=== PATIENT | female | born 1985 | race Caucasian/White ===

== ENCOUNTER 2017-12-19 17:32 | Emergency (ER) | payer OTHER ==
[2017-12-19] MEDS: NS 1,000 ML IV (18:30)
[2017-12-19] MEDS: KETOROLAC 30 MG/ML VIAL (J1885) IV (18:47)
[2017-12-19] MEDS: METOCLOPRAMIDE INJ 10MG/2ML VIAL (J2765) IV (18:47)
[2017-12-19 19:00] LABS: BASO % 0.3 % (0.0-1.0); EOS # 0.4 10^3/uL (0.0-0.50); EOS % 4.6 % (0.0-3.0); HEMATOCRIT 40.3 % (36.0-47.0); HEMOGLOBIN 13.3 g/dl (12.0-16.0); IMMATURE GRANULOCYTE % 0.2 % (0-3.0); LYMPH % 34.4 % (24.0-44.0); MEAN CORPUSCULAR HEMOGLOBIN 31.5 pg (27.0-33.0); MEAN CORPUSCULAR VOLUME 95.5 fl (80.0-96.0); MONO # 0.6 10^3/uL (0.0-0.8); MONO % 7.4 % (0.0-5.0); NEUTROPHILS # 4.6 10^3/uL (1.8-7.7); NEUTROPHILS % 53.1 % (36.0-66.0); PLATELET COUNT, AUTOMATED 180 10^3/uL (150-450); RED BLOOD COUNT 4.22 10^6/uL (4.00-5.40); RED CELL DISTRIBUTION WIDTH 13.1 % (11.5-14.5); WHITE BLOOD COUNT 8.7 10^3/uL (4.0-10.0)
[2017-12-19 19:22] LABS: ANION GAP 7 MEQ/L (8-16); BLOOD UREA NITROGEN 13 MG/DL (7-18); C REACTIVE PROTEIN QUANTITATIV 0.79 MG/DL (0.00-0.30); CALCIUM LEVEL 7.7 MG/DL (8.5-10.1); CARBON DIOXIDE LEVEL 27 MEQ/L (21-32); CHLORIDE LEVEL 108 MEQ/L (98-107); CREATININE FOR GFR 0.48 MG/DL (0.55-1.30); GLOMERULAR FILTRATION RATE > 60.0 (>60); GLUCOSE, FASTING 84 MG/DL (70-100); POTASSIUM SERUM 3.7 MEQ/L (3.5-5.1); SODIUM LEVEL 142 MEQ/L (136-145)
[2017-12-19] MEDS: ONDANSETRON 4 MG ORAL DISINTEGRATING TAB (S0181) PO (21:00)
[2017-12-19] MEDS: KETOROLAC TROMETHAMINE 10 MG TAB PO (21:00)
== END 2017-12-19 21:08 | disposition home or self-care (01) ==
LOC: M ED 17:32
DX: G44.209 Tension-type headache, unspecified, not intractable (principal); M25.532 Pain in left wrist; J45.909 Unspecified asthma, uncomplicated; M81.0 Age-related osteoporosis without current pathological fracture; F17.200 Nicotine dependence, unspecified, uncomplicated; Z79.899 Other long term (current) drug therapy; Z88.5 Allergy status to narcotic agent; Z88.4 Allergy status to anesthetic agent
CPT/HCPCS: J1885

== ENCOUNTER → 2022-12-29 | Outpatient (CLI) | payer OTHER ==
[~2022-12-29] MED LIST: COMBAER6 INH; HUMI40KI2 SC; KETO10TAB PO; MELA5TAB20 PO; SERO200T PO; VIST50CA PO; ZOFR4TAB14 PO
== END ==
LOC: M SOG 11:02
PROVIDERS: ATTEND Physician Assistant
DX: M25.531 Pain in right wrist (principal)

== ENCOUNTER 2025-01-02 08:11 | Inpatient (IN) | payer OTHER ==
[~2025-01-02] VITALS: Ht 165.1 cm; Wt 99.8 kg
[~2025-01-02 08:11] MED LIST changes: +ALBU8.5H INH; +FAMO1TAB11 PO; +FLUD0.1T PO; +MIDO5TA PO
[2025-01-02] MEDS ORDERED: fentaNYL 100 MCG/2 ML INJECTION As Ordered ONE (08:32)
[2025-01-02] MEDS ORDERED: propofoL 200 MG/20 ML VIAL As Ordered ONE (08:32)
[2025-01-02] MEDS ORDERED: MIDAZOLAM INJ 2MG/2ML VIAL As Ordered ONE (08:32)
[2025-01-02] MEDS ORDERED: ONDANSETRON 4MG 2ML VIAL As Ordered ONE (08:32)
[2025-01-02] MEDS ORDERED: LIDOCAINE 2% 100MG/5ML SDV (FOR ANES.) As Ordered ONE (08:32)
[2025-01-02] MEDS ORDERED: dexmedeTOMIDine (4MCG/ML)200MCG/50ML BTL (PRECEDEX) As Ordered ONE (08:33)
[2025-01-02] MEDS: LR 1,000 ML IV SCH ×2 (09:18→13:10)
[2025-01-02] MEDS ORDERED: ROCURONIUM BROMIDE 50MG/5ML VIAL As Ordered ONE (10:06)
[2025-01-02] MEDS ORDERED: HYDROCORTISONE 100MG/2ML VIAL As Ordered ONE (10:14)
[2025-01-02] MEDS: CLINDAMYCIN 900MG/50ML PREMIX BAG As Ordered ONE (10:30)
[2025-01-02] MEDS: HEPARIN SOD (PORCINE) 5000UNITS/ML 1ML VIAL/SYRINGE SQ ONE (10:42)
[2025-01-02] MEDS ORDERED: HYDROmorphone HCL 2MG/ML 1ML VIAL As Ordered ONE (10:53)
[2025-01-02] MEDS ORDERED: ACETAMINOPHEN 1000MG/100ML IV BAG As Ordered ONE (10:53)
[2025-01-02] MEDS ORDERED: SUGAMMADEX SODIUM 500 MG/5 ML VIAL (BRIDION) As Ordered ONE (10:53)
[2025-01-02] MEDS: POVIDONE-IODINE 5% OPHTH PREP SOL 30ML As Ordered ONE (10:57)
[2025-01-02] MEDS: LIDOCAINE 2% W/EPINEPHRINE 20ML VIAL **PRES FREE As Ordered ONE (10:57)
[2025-01-02] MEDS: ceFAZolin SOD 2 GM IV ONCE IV ONE (10:58)
[2025-01-02] MEDS: BUPivacaine LIPOSOME/PF 266MG 20ML VIAL (13.3MG/ML)(EXPAREL) As Ordered ONE (12:57)
[2025-01-02] MEDS: BACITRACIN OINTMENT 30GM TUBE As Ordered ONE (12:58)
[2025-01-02] MEDS ORDERED: fentaNYL 100 MCG/2 ML INJECTION IV PRN (13:10)
[2025-01-02] MEDS ORDERED: HYDROMORPHONE HCL 0.5 MG/ 0.5 ML SYRINGE IV PRN (13:10)
[2025-01-02] MEDS ORDERED: ONDANSETRON 4MG 2ML VIAL IV PRN (13:10)
[2025-01-02] MEDS ORDERED: oxyCODONE 5MG TAB PO PRN (13:10)
[2025-01-02] MEDS ORDERED: ALBUTEROL 90 MCG/ACT 8GM HFA INHALER INH PRN (14:50)
[2025-01-02 15:30] VITALS: BP 122/70; TEMP 97.2; O2SAT 96
[2025-01-02] MEDS ORDERED: ACETAMINOPHEN 325 MG TAB PO PRN (15:45)
[2025-01-02 16:00] VITALS: BP 121/70; TEMP 97.3; O2SAT 93
[2025-01-02] MEDS ORDERED: HOME MED LIST COMPLETE! XX SCH (16:15)
[2025-01-02 16:30] VITALS: BP 122/70; TEMP 96.6; O2SAT 95
[2025-01-02 17:30] VITALS: BP 123/69; TEMP 97.9; O2SAT 88
[2025-01-02 18:32] VITALS: BP 105/63; TEMP 97.7; O2SAT 94
[2025-01-02] MEDS: DOCUSATE SODIUM 100MG CAPSULE PO SCH (20:07)
[2025-01-02] MEDS: FAMOTIDINE 20 MG TAB PO SCH (20:07)
[2025-01-02 20:30] VITALS: BP 127/77; TEMP 97.9; O2SAT 94
[2025-01-03 00:30] VITALS: BP 125/78; TEMP 97.5; O2SAT 97
[2025-01-03 04:30] VITALS: BP 122/76; TEMP 97.7; O2SAT 95
[2025-01-03 06:00] LABS: BASO % 0.4 % (0.0-1.0); EOS # 0.2 10^3/uL (0.0-0.5); EOS % 2.3 % (0.0-3.0); HEMOGLOBIN 12.7 g/dl (12.0-15.5); LYMPH # 2.7 10^3/uL (1.5-5.0); LYMPH % 33.9 % (24.0-44.0); MEAN CORPUSCULAR HEMOGLOBIN 30.9 pg (27.0-33.0); MEAN CORPUSCULAR HGB CONC 32.6 g/dl (32.0-36.5); MEAN CORPUSCULAR VOLUME 94.9 fl (80.0-96.0); MONO # 0.8 10^3/uL (0.0-0.8); MONO % 9.8 % (2.0-8.0); NEUTROPHILS # 4.2 10^3/uL (1.5-8.5); NEUTROPHILS % 53.2 % (36.0-66.0); PLATELET COUNT, AUTOMATED 211 10^3/uL (150-450); RED BLOOD COUNT 4.11 10^6/uL (4.00-5.40); WHITE BLOOD COUNT 7.8 10^3/uL (4.0-10.0)
[2025-01-03 06:06] LABS: BLOOD UREA NITROGEN 16 MG/DL (9-23); CALCIUM LEVEL 8.4 MG/DL (8.5-10.1); CARBON DIOXIDE LEVEL 25 MMOL/L (20-31); CHLORIDE LEVEL 110 MMOL/L (98-107); GLOMERULAR FILTRATION RATE > 60.0 (>60); GLUCOSE, FASTING 104 MG/DL (60-100); POTASSIUM SERUM 3.8 MMOL/L (3.5-5.1); SODIUM LEVEL 143 MMOL/L (136-145)
[2025-01-03 08:30] VITALS: BP 127/77; TEMP 97.5; O2SAT 96
[2025-01-03 09:10] VITALS: BP 124/82; TEMP 97.8; O2SAT 96
[2025-01-03] MEDS: MIDODRINE 5 MG TAB PO SCH ×2 (09:34→19:37)
[2025-01-03] MEDS: FLUDROCORTISONE ACETATE 0.1 MG TAB PO SCH (09:35)
[2025-01-03] MEDS: ENOXAPARIN 40MG/0.4ML SYRINGE (J1650 PER 10MG) SC SCH (09:37)
[2025-01-03] MEDS: oxyCODONE 5MG TAB PO PRN (09:54)
[2025-01-03 12:00] VITALS: BP 132/75; TEMP 97.7; O2SAT 98
[2025-01-03] MEDS: SIMETHICONE 80MG CHEW TAB PO PRN (19:36)
[2025-01-03 19:55] VITALS: BP 130/76; TEMP 97.7; O2SAT 94
[2025-01-04 00:09] VITALS: BP 119/71; TEMP 98.2; O2SAT 93
[2025-01-04 04:00] VITALS: BP 125/75; TEMP 98.2; O2SAT 93
[2025-01-04] MEDS: CEPACOL LOZENGE PO PRN (06:05)
[2025-01-04 06:10] LABS: BASO % 0.5 % (0.0-1.0); EOS # 0.3 10^3/uL (0.0-0.5); EOS % 4.2 % (0.0-3.0); HEMATOCRIT 39.1 % (36.0-47.0); HEMOGLOBIN 12.7 g/dl (12.0-15.5); LYMPH # 2.2 10^3/uL (1.5-5.0); LYMPH % 27.8 % (24.0-44.0); MEAN CORPUSCULAR HEMOGLOBIN 30.6 pg (27.0-33.0); MEAN CORPUSCULAR HGB CONC 32.5 g/dl (32.0-36.5); MEAN CORPUSCULAR VOLUME 94.2 fl (80.0-96.0); MONO # 0.7 10^3/uL (0.0-0.8); MONO % 8.9 % (2.0-8.0); NEUTROPHILS # 4.6 10^3/uL (1.5-8.5); NEUTROPHILS % 58.2 % (36.0-66.0); PLATELET COUNT, AUTOMATED 192 10^3/uL (150-450); RED BLOOD COUNT 4.15 10^6/uL (4.00-5.40); WHITE BLOOD COUNT 7.9 10^3/uL (4.0-10.0)
[2025-01-04 06:30] LABS: BLOOD UREA NITROGEN 12 MG/DL (9-23); CALCIUM LEVEL 7.9 MG/DL (8.5-10.1); CARBON DIOXIDE LEVEL 26 MMOL/L (20-31); CHLORIDE LEVEL 105 MMOL/L (98-107); CREATININE FOR GFR 0.74 MG/DL (0.55-1.30); GLOMERULAR FILTRATION RATE > 90.0 (>60); GLUCOSE, FASTING 90 MG/DL (60-100); POTASSIUM SERUM 3.8 MMOL/L (3.5-5.1); SODIUM LEVEL 139 MMOL/L (136-145)
[2025-01-04 10:02] LABS: IONIZED CALCIUM 4.5 MG/DL (4.5-5.3)
[2025-01-04 10:40] LABS: URIC ACID 5.2 MG/DL (3.1-7.8)
[2025-01-04 10:43] LABS: C REACTIVE PROTEIN QUANTITATIV 3.1 MG/DL (<1.0); C REACTIVE PROTEIN QUANTITATIV 3.12 MG/DL (<1.0); MAGNESIUM LEVEL 1.8 MG/DL (1.8-2.4); PHOSPHORUS LEVEL 3.2 MG/DL (2.5-4.9)
[2025-01-04 10:55] LABS: PROCALCITONIN 0.04 ng/ml
[2025-01-04 11:07] LABS: SOURCE, BODY FLUID RT KNEE; SYNOVIAL FLUID COLOR PALE YELLOW (COLORLESS)
[2025-01-04] MEDS: MIRALAX *UNIT DOSE* 17GM PACKET PO SCH (11:40)
[2025-01-04 12:23] LABS: CRYSTALS, BODY FLUID NONE SEEN (NONE SEEN); SOURCE, BODY FLUID CRYSTALS RT KNEE
[2025-01-04 13:07] VITALS: BP 124/72; TEMP 97.9; O2SAT 94
[2025-01-04] MEDS: oxyCODONE 5MG TAB PO PRN (16:00)
[2025-01-04 20:43] VITALS: BP 124/71; TEMP 97.3; O2SAT 95
[2025-01-05 05:27] VITALS: BP 122/70; TEMP 97.9; O2SAT 97
[2025-01-05 06:33] LABS: BASO % 0.5 % (0.0-1.0); EOS # 0.4 10^3/uL (0.0-0.5); EOS % 5.2 % (0.0-3.0); HEMATOCRIT 37.9 % (36.0-47.0); HEMOGLOBIN 12.3 g/dl (12.0-15.5); LYMPH # 2.2 10^3/uL (1.5-5.0); LYMPH % 29.3 % (24.0-44.0); MEAN CORPUSCULAR HEMOGLOBIN 30.9 pg (27.0-33.0); MEAN CORPUSCULAR HGB CONC 32.5 g/dl (32.0-36.5); MEAN CORPUSCULAR VOLUME 95.2 fl (80.0-96.0); MONO # 0.7 10^3/uL (0.0-0.8); MONO % 9.6 % (2.0-8.0); NEUTROPHILS # 4.2 10^3/uL (1.5-8.5); NEUTROPHILS % 55.1 % (36.0-66.0); PLATELET COUNT, AUTOMATED 193 10^3/uL (150-450); RED BLOOD COUNT 3.98 10^6/uL (4.00-5.40); WHITE BLOOD COUNT 7.5 10^3/uL (4.0-10.0)
[2025-01-05 06:56] LABS: BLOOD UREA NITROGEN 7 MG/DL (9-23); CALCIUM LEVEL 8.4 MG/DL (8.5-10.1); CARBON DIOXIDE LEVEL 28 MMOL/L (20-31); CHLORIDE LEVEL 106 MMOL/L (98-107); CREATININE FOR GFR 0.65 MG/DL (0.55-1.30); GLOMERULAR FILTRATION RATE > 90.0 (>60); GLUCOSE, FASTING 97 MG/DL (60-100); POTASSIUM SERUM 4.2 MMOL/L (3.5-5.1); SODIUM LEVEL 141 MMOL/L (136-145)
[2025-01-05 08:00] LABS: C REACTIVE PROTEIN QUANTITATIV 6.74 MG/DL (<1.0)
[2025-01-05 09:25] VITALS: BP 148/80; TEMP 97.7
[2025-01-05 12:42] VITALS: BP 124/70; TEMP 97.9; O2SAT 96
[2025-01-05] MEDS: IBUPROFEN 800 MG TAB PO SCH (14:00)
[2025-01-05 16:30] VITALS: BP 125/71; TEMP 97.7; O2SAT 97
[2025-01-05 20:36] VITALS: BP 134/84; TEMP 97.9; O2SAT 96
[2025-01-06] VITALS (7 sets, daily range): BP systolic 108–136; BP diastolic 64–80; TEMP 97–97.7; O2SAT 96–99
[2025-01-06 07:18] LABS: BASO # 0.1 10^3/uL (0.0-0.2); BASO % 0.9 % (0.0-1.0); EOS # 0.5 10^3/uL (0.0-0.5); EOS % 7.1 % (0.0-3.0); HEMATOCRIT 37.5 % (36.0-47.0); HEMOGLOBIN 12.3 g/dl (12.0-15.5); LYMPH # 2.2 10^3/uL (1.5-5.0); LYMPH % 29.6 % (24.0-44.0); MEAN CORPUSCULAR HEMOGLOBIN 30.3 pg (27.0-33.0); MEAN CORPUSCULAR HGB CONC 32.8 g/dl (32.0-36.5); MEAN CORPUSCULAR VOLUME 92.4 fl (80.0-96.0); MONO # 0.6 10^3/uL (0.0-0.8); MONO % 7.9 % (2.0-8.0); NEUTROPHILS # 4.1 10^3/uL (1.5-8.5); NEUTROPHILS % 54.2 % (36.0-66.0); PLATELET COUNT, AUTOMATED 210 10^3/uL (150-450); RED BLOOD COUNT 4.06 10^6/uL (4.00-5.40); WHITE BLOOD COUNT 7.6 10^3/uL (4.0-10.0)
[2025-01-06 07:48] LABS: BLOOD UREA NITROGEN 8 MG/DL (9-23); CALCIUM LEVEL 8.3 MG/DL (8.5-10.1); CARBON DIOXIDE LEVEL 26 MMOL/L (20-31); CHLORIDE LEVEL 106 MMOL/L (98-107); GLOMERULAR FILTRATION RATE > 90.0 (>60); GLUCOSE, FASTING 98 MG/DL (60-100); POTASSIUM SERUM 3.9 MMOL/L (3.5-5.1); SODIUM LEVEL 140 MMOL/L (136-145)
[2025-01-06] MEDS ORDERED: ANALGESIC BALM CRM 3OZ TOP PRN (09:55)
[2025-01-06] MEDS: RAMELTEON 8 MG TAB (ROZEREM) PO SCH (20:24)
[2025-01-07] VITALS: BP 121/74; TEMP 97.2; O2SAT 98
[2025-01-07 04:54] VITALS: BP 130/83; TEMP 97.5; O2SAT 98
[2025-01-07 07:20] LABS: BASO # 0.1 10^3/uL (0.0-0.2); BASO % 0.7 % (0.0-1.0); EOS # 0.6 10^3/uL (0.0-0.5); EOS % 7.9 % (0.0-3.0); HEMATOCRIT 36.2 % (36.0-47.0); LYMPH # 2.2 10^3/uL (1.5-5.0); LYMPH % 31.4 % (24.0-44.0); MEAN CORPUSCULAR HEMOGLOBIN 30.3 pg (27.0-33.0); MEAN CORPUSCULAR HGB CONC 33.1 g/dl (32.0-36.5); MEAN CORPUSCULAR VOLUME 91.4 fl (80.0-96.0); MONO # 0.6 10^3/uL (0.0-0.8); MONO % 8.3 % (2.0-8.0); NEUTROPHILS # 3.7 10^3/uL (1.5-8.5); NEUTROPHILS % 51.4 % (36.0-66.0); PLATELET COUNT, AUTOMATED 223 10^3/uL (150-450); RED BLOOD COUNT 3.96 10^6/uL (4.00-5.40); WHITE BLOOD COUNT 7.1 10^3/uL (4.0-10.0)
[2025-01-07 07:50] LABS: BLOOD UREA NITROGEN 10 MG/DL (9-23); CALCIUM LEVEL 8.3 MG/DL (8.5-10.1); CARBON DIOXIDE LEVEL 25 MMOL/L (20-31); CHLORIDE LEVEL 109 MMOL/L (98-107); CREATININE FOR GFR 0.64 MG/DL (0.55-1.30); GLOMERULAR FILTRATION RATE > 90.0 (>60); GLUCOSE, FASTING 98 MG/DL (60-100); SODIUM LEVEL 143 MMOL/L (136-145)
[2025-01-07 08:00] VITALS: BP 122/84; TEMP 97.7; O2SAT 98
[2025-01-07 16:00] VITALS: BP 136/82; TEMP 97.7; O2SAT 97
[2025-01-07 20:04] VITALS: BP 134/83; TEMP 97.5; O2SAT 98
[2025-01-08] VITALS (7 sets, daily range): BP systolic 111–133; BP diastolic 69–86; TEMP 97.3–97.9; O2SAT 73–98
[2025-01-08 07:44] LABS: BASO % 0.4 % (0.0-1.0); EOS # 0.5 10^3/uL (0.0-0.5); EOS % 5.7 % (0.0-3.0); HEMATOCRIT 36.2 % (36.0-47.0); LYMPH # 2.3 10^3/uL (1.5-5.0); MEAN CORPUSCULAR HEMOGLOBIN 30.4 pg (27.0-33.0); MEAN CORPUSCULAR HGB CONC 33.1 g/dl (32.0-36.5); MEAN CORPUSCULAR VOLUME 91.6 fl (80.0-96.0); MONO # 0.7 10^3/uL (0.0-0.8); MONO % 8.3 % (2.0-8.0); NEUTROPHILS # 4.5 10^3/uL (1.5-8.5); NEUTROPHILS % 56.2 % (36.0-66.0); PLATELET COUNT, AUTOMATED 218 10^3/uL (150-450); RED BLOOD COUNT 3.95 10^6/uL (4.00-5.40)
[2025-01-08 08:17] LABS: ALBUMIN 2.7 G/DL (3.2-5.2); ALKALINE PHOSPHATASE 83 U/L (35-104); ALT/SGPT 59 U/L (7.0-40); AST/SGOT 22 U/L (<34); BILIRUBIN,TOTAL 0.3 MG/DL (0.3-1.2); BLOOD UREA NITROGEN 15 MG/DL (9-23); C REACTIVE PROTEIN QUANTITATIV 3.12 MG/DL (<1.0); CALCIUM LEVEL 8.1 MG/DL (8.5-10.1); CARBON DIOXIDE LEVEL 26 MMOL/L (20-31); CHLORIDE LEVEL 105 MMOL/L (98-107); CREATININE FOR GFR 0.67 MG/DL (0.55-1.30); GLOMERULAR FILTRATION RATE > 90.0 (>60); GLUCOSE, FASTING 99 MG/DL (60-100); MAGNESIUM LEVEL 1.7 MG/DL (1.8-2.4); POTASSIUM SERUM 3.9 MMOL/L (3.5-5.1); SODIUM LEVEL 139 MMOL/L (136-145)
[2025-01-08] MEDS: MAG SULF 1GM/100ML (MAG RUN) 1 GM in IV 1 EA IV SCH (12:55)
[2025-01-08] MEDS: CLINDAMYCIN 150MG CAPSULE PO SCH (16:12)
[2025-01-09] VITALS (12 sets, daily range): BP systolic 99–128; BP diastolic 56–78; TEMP 97.3–97.9; O2SAT 93–100
[2025-01-09 08:01] LABS: BASO % 0.4 % (0.0-1.0); EOS # 0.3 10^3/uL (0.0-0.5); EOS % 3.9 % (0.0-3.0); HEMATOCRIT 38.1 % (36.0-47.0); HEMOGLOBIN 12.8 g/dl (12.0-15.5); LYMPH # 1.7 10^3/uL (1.5-5.0); LYMPH % 23.1 % (24.0-44.0); MEAN CORPUSCULAR HEMOGLOBIN 30.7 pg (27.0-33.0); MEAN CORPUSCULAR HGB CONC 33.6 g/dl (32.0-36.5); MEAN CORPUSCULAR VOLUME 91.4 fl (80.0-96.0); MONO # 0.6 10^3/uL (0.0-0.8); MONO % 8.4 % (2.0-8.0); NEUTROPHILS # 4.7 10^3/uL (1.5-8.5); NEUTROPHILS % 63.7 % (36.0-66.0); PLATELET COUNT, AUTOMATED 222 10^3/uL (150-450); RED BLOOD COUNT 4.17 10^6/uL (4.00-5.40); WHITE BLOOD COUNT 7.4 10^3/uL (4.0-10.0)
[2025-01-09 08:20] LABS: BLOOD UREA NITROGEN 16 MG/DL (9-23); CALCIUM LEVEL 8.3 MG/DL (8.5-10.1); CARBON DIOXIDE LEVEL 27 MMOL/L (20-31); CHLORIDE LEVEL 104 MMOL/L (98-107); CREATININE FOR GFR 0.66 MG/DL (0.55-1.30); GLOMERULAR FILTRATION RATE > 90.0 (>60); GLUCOSE, FASTING 100 MG/DL (60-100); MAGNESIUM LEVEL 1.9 MG/DL (1.8-2.4); POTASSIUM SERUM 3.6 MMOL/L (3.5-5.1); SODIUM LEVEL 139 MMOL/L (136-145)
[2025-01-09 08:21] LABS: C REACTIVE PROTEIN QUANTITATIV 4.35 MG/DL (<1.0)
[2025-01-09 11:07] LABS: LYME PCR FOR BODY FLUID Negative (Negative)
[2025-01-09] MEDS: GENTAMICIN SULF 80MG/2ML VIAL As Ordered ONE (12:32)
[2025-01-09] MEDS ORDERED: fentaNYL 100 MCG/2 ML INJECTION IV PRN (12:55)
[2025-01-09] MEDS: LR 1,000 ML IV SCH (12:55)
[2025-01-10] VITALS: BP 124/74; TEMP 97.9
[2025-01-10 05:12] VITALS: BP 123/71; TEMP 97.9; O2SAT 100
[2025-01-10 10:45] VITALS: BP 122/74; TEMP 97.7; O2SAT 96
[2025-01-10] MEDS: CALCIUM CARBONATE 500 MG CHEW U/D PO ONE (11:42)
[2025-01-10] MEDS: LACTOBACILLUS ACIDOPHILUS CAP (BACID) PO SCH (17:04)
[2025-01-10 22:00] VITALS: O2SAT 96
[2025-01-11 08:00] VITALS: BP 123/73; TEMP 97.5
[2025-01-11 12:00] VITALS: BP 111/60; TEMP 97.7
[2025-01-11 20:07] VITALS: BP 120/86; TEMP 97.5; O2SAT 98
[2025-01-12 03:47] VITALS: BP 119/73; TEMP 97.3; O2SAT 98
[2025-01-12 07:37] VITALS: BP 126/74; TEMP 97.5; O2SAT 98
[2025-01-12] MEDS ORDERED: OXYC-517 PO ×2 (11:29→11:39)
[2025-01-12] MEDS ORDERED: NITR-67 PO (11:29)
[2025-01-12] MEDS ORDERED: CLIN150C17 PO (11:29)
[2025-01-12] MEDS ORDERED: RISATAB3 PO (11:39)
== END 2025-01-12 14:00 | disposition home health service (06) | DRG 578 ==
LOC: M SDC 08:11 → M RR INP 08:12 → M MS5PR 15:30 → OBSVTOIN 01-06 07:12
PROVIDERS: ADMIT Plastic Surgery Surgery of the Hand; ATTEND Internal Medicine
PROC: 0JBB0ZZ Excision of Perineum Subcutaneous Tissue and Fascia, Open Approach (ICD-10-PCS; 2025-01-02)
PROC: 0HR Skin and Breast, Replacement (ICD-10-PCS; 2025-01-02)
PROC: 0JBC0ZZ Excision of Pelvic Region Subcutaneous Tissue and Fascia, Open Approach (ICD-10-PCS; 2025-01-02)
PROC: 0JB90ZZ Excision of Buttock Subcutaneous Tissue and Fascia, Open Approach (ICD-10-PCS; 2025-01-02)
PROC: 0HR Skin and Breast, Replacement (ICD-10-PCS; principal; 2025-01-02 09:40)
PROC: 0S9C3ZZ Drainage of Right Knee Joint, Percutaneous Approach (ICD-10-PCS; 2025-01-04)
PROC: 2W27X4Z Dressing of Left Inguinal Region using Bandage (ICD-10-PCS; 2025-01-09)
PROC: 2W26X4Z Dressing of Right Inguinal Region using Bandage (ICD-10-PCS; 2025-01-09)
DX: L73.2 Hidradenitis suppurativa (principal); M81.0 Age-related osteoporosis without current pathological fracture; G43.909 Migraine, unspecified, not intractable, without status migrainosus; J45.20 Mild intermittent asthma, uncomplicated; I95.1 Orthostatic hypotension; K21.9 Gastro-esophageal reflux disease without esophagitis; K44.9 Diaphragmatic hernia without obstruction or gangrene; F43.10 Post-traumatic stress disorder, unspecified; F51.01 Primary insomnia; K59.03 Drug induced constipation; T40.2X5A Adverse effect of other opioids, initial encounter; M25.561 Pain in right knee; M25.461 Effusion, right knee; M17.11 Unilateral primary osteoarthritis, right knee; K59.09 Other constipation; M19.031 Primary osteoarthritis, right wrist; Z87.891 Personal history of nicotine dependence; Z79.899 Other long term (current) drug therapy; Z88.5 Allergy status to narcotic agent; Z91.018 Allergy to other foods; Z91.048 Other nonmedicinal substance allergy status; Z88.8 Allergy status to other drugs, medicaments and biological substances; Z88.1 Allergy status to other antibiotic agents

== ENCOUNTER → 2025-04-18 | Outpatient (CLI) | payer OTHER ==
[~2025-04-18] MED LIST changes: +CLIN150C17 PO; +NITR-67 PO; +OXYC-517 PO; +PANT40TA29 PO; +RISATAB3 PO; +TRAM50TA2 PO; +ZINC99OI TP
== END ==
LOC: M PLALAB 14:55
PROVIDERS: ATTEND Surgery
DX: Z80.3 Family history of malignant neoplasm of breast (principal); Z80.41 Family history of malignant neoplasm of ovary

== ENCOUNTER → 2025-05-09 | Outpatient (CLI) | payer OTHER | LOC: M WHC 13:54 | PROVIDERS: ATTEND Surgery | DX: N64.4 Mastodynia (principal); Z80.3 Family history of malignant neoplasm of breast; Z80.41 Family history of malignant neoplasm of ovary; R92.313 Mammographic fatty tissue density, bilateral breasts; N60.12 Diffuse cystic mastopathy of left breast | CPT/HCPCS: 76642; 77066; G0279 ==

== ENCOUNTER → 2025-07-17 | Outpatient (CLI) | payer OTHER | LOC: M RAD 15:06 | PROVIDERS: ATTEND Physician Assistant | DX: R06.02 Shortness of breath (principal); Z87.891 Personal history of nicotine dependence ==

== ENCOUNTER → 2025-07-19 | Outpatient (CLI) | payer OTHER ==
[~2025-07-19] MED LIST changes: +METHACHOLINE KIT (6 VIAL.NEB PREMIX) INH ONE
== END ==
LOC: M CARPUL 14:08
PROVIDERS: ATTEND Physician Assistant
DX: R06.02 Shortness of breath (principal)
CPT/HCPCS: 94070; 95070; J7674